=== PATIENT | female | born 1990 | race African-American/Black ===

== ENCOUNTER 2020-04-25 15:44 | Emergency (ER) | payer MEDICAID ==
[~2020-04-25] VITALS: Ht 165.1 cm; Wt 61.0 kg
[2020-04-25] MEDS ORDERED: ACETAMINOPHEN WITH CODEINE 300/30MG TABLET PO SCH (16:45)
[2020-04-25] MEDS ORDERED: IBUPROFEN 800MG TABLET PO SCH (16:45)
[2020-04-25 16:52] VITALS: BP 129/78
[2020-04-25 17:49] LABS: CLARITY URINE CLOUDY (CLEAR); COLOR URINE DK YELLOW (YELLOW); KETONES URINE TRACE (NEGATIVE); LEUKOCYTE ESTERASE URINE 1+ (NEGATIVE); NITRITE URINE NEGATIVE (NEGATIVE); OCCULT BLOOD URINE NEGATIVE (NEGATIVE); PH URINE 6.5 (4.5-8.0); PROTEIN URINE NEGATIVE (NEGATIVE); SPECIFIC GRAVITY URINE 1.022 (1.005-1.030)
[2020-04-28 04:07] LABS: NEISSERIA GONORRHOEAE NAA Negative (Negative)
== END 2020-04-25 18:06 | disposition home or self-care (01) ==
LOC: ER 15:44 → EDBD 15:44 → ER 18:06
DX: S13.4XXA Sprain of ligaments of cervical spine, initial encounter (principal); S40.012A Contusion of left shoulder, initial encounter; M25.511 Pain in right shoulder; V47.5XXA Car driver injured in collision with fixed or stationary object in traffic accident, initial encounter; Y93.89 Activity, other specified; Y92.411 Interstate highway as the place of occurrence of the external cause
CPT/HCPCS: 71045; 72040; 73030; 81003; 81025; 87491; 87591; 99284

== ENCOUNTER 2020-05-06 12:41 | Emergency (ER) | payer MEDICAID ==
[~2020-05-06] VITALS: Ht 165.1 cm; Wt 61.0 kg
[2020-05-06 12:49] VITALS: BP 135/86
[2020-05-06] MEDS ORDERED: NAPR-681 PO (12:53)
[2020-05-06] MEDS ORDERED: TYLENOL#3 (12:53)
[2020-05-06] MEDS ORDERED: CEPH-569 PO (12:53)
== END 2020-05-06 14:34 | disposition home or self-care (01) ==
LOC: ER 12:54
DX: S30.814D Abrasion of vagina and vulva, subsequent encounter (principal); Z79.899 Other long term (current) drug therapy; Z88.2 Allergy status to sulfonamides; X58.XXXD Exposure to other specified factors, subsequent encounter
CPT/HCPCS: 99281; 99283